=== PATIENT | female | born 1965 | race Caucasian/White ===

== ENCOUNTER 2021-03-07 07:03 | Emergency (ER) | payer BC ==
[~2021-03-07] VITALS: Ht 157.5 cm; Wt 79.4 kg
[2021-03-07] MEDS ORDERED: TRULICITY1.5 MG/0.1 SC (07:15)
[2021-03-07] MEDS ORDERED: COLE625 PO (07:16)
[2021-03-07] MEDS ORDERED: CYCL10 PO (08:28)
[2021-03-07] MEDS ORDERED: NAPR500 PO (08:28)
== END 2021-03-07 09:22 | disposition home or self-care (01) ==
LOC: ER 07:03
DX: S16.1XXA Strain of muscle, fascia and tendon at neck level, initial encounter (principal); E11.9 Type 2 diabetes mellitus without complications; E78.00 Pure hypercholesterolemia, unspecified; Z88.0 Allergy status to penicillin; Z88.6 Allergy status to analgesic agent; Z88.5 Allergy status to narcotic agent; X50.1XXA Overexertion from prolonged static or awkward postures, initial encounter
CPT/HCPCS: 99283; A9270